=== PATIENT | male | born 1960 | race African-American/Black ===

== ENCOUNTER 2023-11-05 04:01 | Day surgery (SDC) | payer OTHER ==
[2023-11-01 14:49] VITALS: BMI 3026.8
[2023-11-05] MEDS ORDERED: BUPIVACAINE HCL/PF 0.25% (2.5MG/ML) 10 ML VIAL ONE (13:33)
[2023-11-05] MEDS ORDERED: HEPARIN NA (PORCINE) 5,000 UNITS/ML 1ML VIAL ONE (13:34)
[2023-11-05] MEDS ORDERED: ROCURONIUM BROMIDE 50 MG/5 ML SYRINGE ONE (13:49)
[2023-11-05] MEDS ORDERED: MIDAZOLAM HCL 2 MG/2 ML SINGLE DOSE VIAL ONE (13:49)
[2023-11-05] MEDS ORDERED: PROPOFOL 20 ML ONE (13:50)
[2023-11-05] MEDS: ceFAZolin SODIUM 1 GM VIAL IVPB ONE (14:17)
[2023-11-05] MEDS: BUPIVACAINE HCL/PF 0.25% (2.5MG/ML) 10 ML VIAL IJ ONE ×2 (14:21)
[2023-11-05] MEDS ORDERED: ONDANSETRON 4 MG/2 ML VIAL IVPUSH PRN (15:28)
[2023-11-05] MEDS ORDERED: LACTATED RINGERS SOLUTION 1,000 ML IV SCH (15:30)
[2023-11-05] MEDS ORDERED: ACETAMINOPHEN INJECTION 100 ML IVPB ONE (15:55)
[2023-11-05] MEDS: KETOROLAC TROMETHAMINE 30 MG/1 ML VIAL ONE (16:05)
[2023-11-05] MEDS: ACETAMINOPHEN 1000 MG/100 ML BAG IVPB ONE (16:10)
[2023-11-05 17:10] VITALS: RESP 18
[2023-11-05] MEDS ORDERED: oxyCODONE HCL 5 MG TABLET ONE (17:44)
[2023-11-05] MEDS ORDERED: KETOROLAC TROMETHAMINE 30 MG/1 ML VIAL IVPUSH ONE (17:49)
[2023-11-05] MEDS: oxyCODONE HCL 5 MG TABLET PO ONE (17:50)
[2023-11-05] MEDS ORDERED: ACETAMINOPHEN 1000 MG/100 ML BAG IVPB ONE (17:50)
[2023-11-05 17:57] VITALS: BP 115/71; PULSE 72; TEMP 98
== END 2023-11-05 18:05 | disposition home or self-care (01) ==
LOC: JASU-SURG 04:01
PROVIDERS: ATTEND Surgery
PROC: 0YU50JZ Supplement Right Inguinal Region with Synthetic Substitute, Open Approach (ICD-10-PCS; principal; 2023-11-05 13:00)
DX: K40.90 Unilateral inguinal hernia, without obstruction or gangrene, not specified as recurrent (principal)
CPT/HCPCS: 86850; 86900; 86901; 94760; C1781; J0131; J1644

== ENCOUNTER 2025-03-22 06:38 | Day surgery (SDC) | payer OTHER ==
[2025-03-16 10:19] VITALS: BMI 21.2
[2025-03-22] MEDS ORDERED: MIDAZOLAM HCL 2 MG/2 ML SINGLE DOSE VIAL ONE ×2 (11:51→11:56)
[2025-03-22] MEDS ORDERED: ONDANSETRON 4 MG/2 ML VIAL ONE (11:52)
[2025-03-22] MEDS ORDERED: DEXAMETHASONE SOD PHOSPHATE 4 MG/1 ML VIAL ONE (11:56)
[2025-03-22 12:35] VITALS: RESP 18
[2025-03-22 14:19] VITALS: BP 125/66; PULSE 65; TEMP 97.6
== END 2025-03-22 14:10 | disposition home or self-care (01) ==
LOC: JASU-SURG 06:38
PROVIDERS: ATTEND Urology
PROC: 0TF3XZZ Fragmentation in Right Kidney Pelvis, External Approach (ICD-10-PCS; principal; 2025-03-22 11:50)
DX: N20.0 Calculus of kidney (principal)